=== PATIENT | female | born 1985 | race Hispanic/Latino ===

== ENCOUNTER → 2020-05-28 14:54 | Outpatient (CLI) | payer BC, SELFPAY ==
[2020-05-28] MEDS: COVID-19 VACC #1, MRNA(MOD) 100 MCG/0.5 ML VIAL IM (15:02)
== END ==
PROVIDERS: Visit Provider Internal Medicine
DX: Z23 Encounter for immunization (principal)
CPT/HCPCS: 0011A; 91301

== ENCOUNTER → 2020-06-25 14:51 | Outpatient (CLI) | payer BC, SELFPAY ==
[2020-06-25] MEDS: COVID-19 VACC #2, MRNA(MOD) 100 MCG/0.5 ML VIAL IM (14:54)
== END ==
PROVIDERS: Visit Provider Internal Medicine
DX: Z23 Encounter for immunization (principal)
CPT/HCPCS: 0012A; 91301